=== PATIENT | male | born 1985 | race Caucasian/White ===

== ENCOUNTER 2017-04-05 21:15 | Emergency (ER) | payer MEDICARE ==
--- NOTE | 2017-04-05 21:28 | Emergency Department Record ---
History of Present Illness - General Chief complaint: Dental Stated complaint: DENTAL PAIN Time Seen by Provider: 04/05/17 21:28 Source: Patient - History of Present Illness Initial comments: The patient states that he has bad teeth throughout his mouth and has had his molars pulled from the [facility]. They won't see him anymore because he is currently a resident of [facility]. He states his lower left front teeth are hurting him continuously for months, but have increased in level of pain the past 1-2 weeks. He denies f,c, swelling, but he states ibuprofen is not controlling the pain. MD complaint: Tooth pain - Related Data Previous Rx's Medication Instructions Recorded Penicillin V Potassium 500 mg PO Q6H #39 tab 04/05/17 Tramadol HCl [Ultram] 50 mg PO Q8H #20 tab 04/05/17 Allergies Allergy/AdvReac Type Severity Reaction Status Date / Time No Known Drug Allergies Allergy Verified 04/05/17 21:28 Review of Systems Reviewed: No additional complaints except as noted below Constitutional: Reports: As per HPI. Denies: Chills, Fever, Malaise, Night sweats, Weakness, Weight change Eyes: Reports: As per HPI. Denies: Eye discharge, Eye pain, Photophobia, Vision change ENT: Reports: As per HPI. Denies: Congestion, Dental pain, Ear pain, Epistaxis , Hearing loss, Throat pain Respiratory: Reports: As per HPI. Denies: Cough, Dyspnea, Hemoptysis, Stridor, Wheezes Cardiovascular: Reports: As per HPI. Denies: Arrhythmia, Chest pain, Dyspnea on exertion, Edema, Murmurs, Orthopnea, Palpitations, Paroxysmal nocturnal dyspnea, Rheumatic Fever, Syncope Endocrine: Reports: As per HPI. Denies: Fatigue, Heat or cold intolerance, Polydipsia, Polyuria Gastrointestinal: Reports: As per HPI. Denies: Abdominal pain, Constipation, Diarrhea, Hematemesis, Hematochezia, Melena, Nausea, Vomiting Genitourinary: Reports: As per HPI. Denies: Dysuria, Frequency, Hematuria, Incontinence, Retention, Testicular pain, Testicular mass, Urgency Musculoskeletal: Reports: As per HPI. Denies: Arthralgia, Back pain, Gout, Joint swelling, Myalgia, Neck pain Skin: Reports: As per HPI. Denies: Bruising, Change in color, Change in hair/ nails, Lesions, Pruritus, Rash Neurological: Reports: As per HPI. Denies: Abnormal gait, Confusion, Headache, Numbness, Paresthesias, Seizure, Tingling, Tremors, Vertigo, Weakness Psychiatric: Reports: As per HPI. Denies: Anxiety, Auditory hallucinations, Depression, Homicidal thoughts, Suicidal thoughts, Visual hallucinations Hematological/Lymphatic: Reports: As per HPI. Denies: Anemia, Blood Clots, Easy bleeding, Easy bruising, Swollen glands Past Medical History - SOCIAL HISTORY Smoking Status: Current every day smoker Physical Exam - General General Appearance: Alert, Oriented x3, Cooperative, Mild distress - Head Head exam: Normal inspection Head exam detail: Other (no facial swelling visible) - Eye Eye exam: Normal appearance, PERRL, EOMI Pupils: Normal accommodation - ENT ENT exam: Normal exam, Mucous membranes moist, Normal external ear exam, Normal orophraynx, TM's normal bilaterally Ear exam: Normal external inspection. negative: External canal tenderness Nasal Exam: Normal inspection. negative: Discharge, Sinus tenderness Mouth exam: Normal external inspection, Tongue normal Teeth exam: Dental caries (molars absent, remaining teeth with advanced caries, no obvious abscess.) Throat exam: Normal inspection. negative: Tonsillar erythema, Tonsillar exudate - Neck Neck exam: Normal inspection, Full ROM. negative: Lymphadenopathy, Meningismus , Tenderness - Respiratory Respiratory exam: Normal lung sounds bilaterally. negative: Respiratory distress - Cardiovascular Cardiovascular Exam: Regular rate, Normal rhythm, Normal heart sounds - GI/Abdominal GI/Abdominal exam: Soft, Normal bowel sounds. negative: Tenderness - Rectal Rectal exam: Deferred - exam: Deferred - Extremities Extremities exam: Normal inspection, Full ROM, Normal capillary refill. negative: Tenderness - Back Back exam: Reports: Normal inspection, Full ROM. Denies: Muscle spasm, Rash noted, Tenderness - Neurological Neurological exam: Alert, Normal gait, Oriented X3, Reflexes normal - Psychiatric Psychiatric exam: Normal affect, Normal mood - Skin Skin exam: Dry, Intact, Normal color, Warm Medical Decision Making - Management Options MDM Management: Additional Work-up Planned (e.g. ADM/Transfer/OP Study) (dental referral) Disposition Disposition: Discharge Clinical Impression: Dental caries Disposition: Home, Self-Care Instructions: Dental Abscess (ED), Toothache (ED), Gingivostomatitis in Children (ED) Additional Instructions: Pen as directed until gone. Ultram as directed as needed for severe pain. tylenol alternated with ibuprofen as directed as needed for pain. Dental referral numbers as given for follow up--call Saturday for appointment. Prescriptions: Penicillin V Potassium 500 mg PO Q6H #39 tab Tramadol HCl [Ultram] 50 mg PO Q8H #20 tab Forms: Patient Portal Access
[2017-04-05] MEDS ORDERED: PENICILLIN V POTASSIUM 250 MG TAB PO ONE (22:07)
[2017-04-05] MEDS ORDERED: TRAMADOL HCL 50 MG TABLET PO ONE (22:08)
== END 2017-04-05 22:25 | disposition home or self-care (01) ==
LOC: ER 21:15
DX: K02.9 Dental caries, unspecified (principal)
CPT/HCPCS: 99282

== ENCOUNTER 2018-08-25 21:34 | Emergency (ER) | payer MEDICARE ==
--- NOTE | 2018-08-25 22:06 | Emergency Department Record ---
History of Present Illness - General Chief complaint: Dental Stated complaint: DENTAL ABSCESS Time Seen by Provider: 08/25/18 22:05 Source: Patient Mode of Arrival: Ambulatory Limitations: No limitations - History of Present Illness Initial comments: 33 yo male presents to ED for evaluation of worsening dental abscess/infection to the left lo9wer jaw for approximately 1 week. Patient reports that he has been taking Penicillin VK daily for the past 1 week, but does not seem be helping (only taking 500 mg daily). Patient reports that the gingiva feels swollen. Patient denies dental pain symptoms. Patient denies fevers, chills, jaw swelling, or difficulty in breathing symptoms. Patient denies health problems other than dental caries. MD complaint: Tooth pain Onset/Timin -: Week(s) Location: Tooth # Severity: Mild Consistency: Constant Improves with: None Worsens with: None Context-Epistaxis: History of similar Context- Dental: History of dental caries Associated Symptoms: Gum swelling - Related Data Home Medications Medication Instructions Recorded Confirmed Last Taken Penicillin V Potassium 500 mg PO BID 08/25/18 08/25/18 Unknown Previous Rx's Medication Instructions Recorded Penicillin V Potassium 500 mg PO QID #40 tablet 08/25/18 Allergies Allergy/AdvReac Type Severity Reaction Status Date / Time No Known Drug Allergies Allergy Verified 04/05/17 21:28 Travel Screening - Travel/Exposure Within Last 30 Days Have you traveled within the last 30 days?: No Review of Systems Constitutional: Denies: Chills, Fever, Malaise, Night sweats Eyes: Denies: Eye discharge, Eye pain ENT: Reports: Dental pain. Denies: Congestion, Ear pain, Epistaxis Respiratory: Denies: Cough, Dyspnea Cardiovascular: Denies: Chest pain, Dyspnea on exertion Endocrine: Denies: Fatigue, Heat or cold intolerance Gastrointestinal: Denies: Abdominal pain, Nausea, Vomiting Genitourinary: Denies: Incontinence, Retention Musculoskeletal: Denies: Arthralgia, Back pain Skin: Denies: Bruising, Change in color Neurological: Denies: Abnormal gait, Confusion, Headache, Seizure Psychiatric: Denies: Anxiety Hematological/Lymphatic: Denies: Anemia, Blood Clots Past Medical History - SOCIAL HISTORY Smoking Status: Current every day smoker Alcohol Use: None Drug Use: None - RESPIRATORY Hx Respiratory Disorders: Yes 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 - CARDIOVASCULAR Hx Cardio Disorders: No - NEURO Hx Neuro Disorders: No - GI Hx GI Disorders: No - Hx Genitourinary Disorders: No - ENDOCRINE Hx Endocrine Disorders: No - MUSCULOSKELETAL Hx Musculoskeletal Disorders: No - PSYCH Hx Psych Problems: No - HEMATOLOGY/ONCOLOGY Hx Hematology/Oncology Disorders: Yes Comment:: Genetic disease- Charotmarietooth type 2C Family Medical History Any Significant Family History?: Yes Family Hx Comment (NOT TO BE USED IN PLACE OF ITEMS BELOW): Genetic disorder Hx Diabetes: Father Hx HTN: Father *Resp Comment: restrictive airway w/vocal cord paralysis Physical Exam - General General Appearance: Alert, Oriented x3, Cooperative, Mild distress Limitations: No limitations - Head Head exam: Atraumatic, Normocephalic, Normal inspection Head exam detail: negative: Abrasion, Contusion, Gomez's sign, General tenderness, Hematoma, Laceration - Eye Eye exam: Normal appearance. negative: Conjunctival injection, Periorbital swelling, Periorbital tenderness, Scleral icterus - ENT Ear exam: negative: Auricular hematoma, Auricular trauma Mouth exam: negative: Drooling, Laceration, Muffled voice, Tongue elevation, Tongue normal Teeth exam: Dental caries, Other (No gingival abscess is present on examination. ). negative: Dental tenderness #, Fractured tooth #, Gingival enlargement Throat exam: negative: Tonsillar erythema, Tonsillomegaly, R peritonsillar mass , L peritonsillar mass - Neck Neck exam: Normal inspection. negative: Meningismus, Tenderness - Respiratory Respiratory exam: Normal lung sounds bilaterally. negative: Rales, Respiratory distress, Rhonchi, Stridor - Cardiovascular Cardiovascular Exam: Regular rate, Normal rhythm, Normal heart sounds - GI/Abdominal GI/Abdominal exam: Soft. negative: Rebound, Rigid, Tenderness - Rectal Rectal exam: Deferred - exam: Deferred - Extremities Extremities exam: Normal inspection. negative: Calf tenderness, Pedal edema, Tenderness - Back Back exam: Denies: CVA tenderness (R), CVA tenderness (L) - Neurological Neurological exam: Alert, Normal gait, Oriented X3 - Psychiatric Psychiatric exam: Normal affect, Normal mood - Skin Skin exam: Normal color. negative: Abrasion Type of lesion: negative: abrasion Course Vital Signs 08/25/18 21:46 Temperature 98.6 F Pulse Rate [ 96 H Pulse Ox Probe] Respiratory 24 Rate Blood Pressure 141/83 [Left Arm] Pulse Ox 98 - Reevaluation(s) Reevaluation #1: 08/25/18 22:11 Symptoms appear c/w dental caries Will prescribe Pen VK as directed 4 times daily for 10 days with instructions for dental follow-up. Patient agrees with the plan of care as discussed. Disposition Disposition: Discharge Clinical Impression: Dental caries Disposition: Home, Self-Care Condition: (2) Stable Instructions: Dental Abscess (ED) Additional Instructions: Return to ED if your symptoms worsen or if you have any concerns. Penicillin VK as directed. Follow-up with your dentist in 3-5 days as directed. Prescriptions: Penicillin V Potassium 500 mg PO QID #40 tablet Forms: Patient Portal Access Time of Disposition: 22:06 Quality - Quality Measures Quality Measures: N/A - Blood Pressure Screening Does Patient Have Any of the Following: No Blood Pressure Classification: Pre-Hypertensive BP Reading Systolic Measurement: 141 Diastolic Measurement: 83 Screening for High Blood Pressure: < Pre-Hypertensive BP, F/U Documented > [ G8950] Pre-Hypertensive Follow-up Interventions: Referral to alternative/primary care provider.
== END 2018-08-25 22:35 | disposition home or self-care (01) ==
LOC: ER 21:34
DX: K02.9 Dental caries, unspecified (principal); F17.210 Nicotine dependence, cigarettes, uncomplicated
CPT/HCPCS: 99282

== ENCOUNTER 2019-07-17 14:35 | Emergency (ER) | payer MEDICARE ==
[2019-07-17] MEDS ORDERED: KETOROLAC 30 MG/ML VIAL IM ONE (14:43)
--- NOTE | 2019-07-17 14:45 | Emergency Department Record ---
History of Present Illness - General Chief complaint: ENT Stated complaint: DENTAL PAIN Time Seen by Provider: 07/17/19 14:36 Source: Patient Mode of Arrival: Ambulatory Limitations: No limitations - History of Present Illness Initial comments: The patient is here due to L jaw pain for the last 1 hour since he had 3 teeth pulled 4 hours ago. He was at [facility] this AM and had the L lower teeth pulled and now the anesthesia is wearing off and his Ibuprofen is not helping. He also has been taking Keflex. The patient denies any trouble or pain with swallowing or any SOB. The patient does have a hx of chronic stridor and vocal cord dysfunction but that is stable at this time. He denies any voice changes or breathing issues. MD complaint: Tooth pain Onset/Timin -: Hour(s) Location: Tooth # Severity: Moderate Severity scale (1-10): 9 Quality: Aching Consistency: Constant Improves with: None Worsens with: None Associated Symptoms: Other - Related Data Home Medications Medication Instructions Recorded Confirmed Last Taken Ibuprofen 800 mg PO Q6H 07/17/19 07/17/19 Unknown Previous Rx's Medication Instructions Recorded Naproxen [Naprosyn] 500 mg PO BID #14 tablet. 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 - CARDIOVASCULAR Hx Cardio Disorders: No - NEURO Hx Neuro Disorders: No - GI Hx GI Disorders: No - Hx Genitourinary Disorders: No - ENDOCRINE Hx Endocrine Disorders: No - MUSCULOSKELETAL Hx Musculoskeletal Disorders: No - PSYCH Hx Psych Problems: No - HEMATOLOGY/ONCOLOGY Hx Hematology/Oncology Disorders: Yes Comment:: Genetic disease- Charotmarietooth type 2C Family Medical History Any Significant Family History?: Yes Family Hx Comment (NOT TO BE USED IN PLACE OF ITEMS BELOW): Genetic disorder Hx Diabetes: Father Hx HTN: Father *Resp Comment: restrictive airway w/vocal cord paralysis Physical Exam - General General Appearance: Alert, Oriented x3, Cooperative, Mild distress (due to dental pain.) - Head Head exam: Atraumatic, Normocephalic - Eye Eye exam: Normal appearance, PERRL - ENT Teeth exam: Dental caries (diffuse. The extraction sites over the L lower mandible appear very clean, not bleeding and with no swelling.). negative: Normal inspection, Gingival enlargement Throat exam: Normal inspection. negative: Tonsillar erythema, Tonsillar exudate - Neck Neck exam: Normal inspection, Full ROM. negative: Lymphadenopathy, Tenderness - Respiratory Respiratory exam: Normal lung sounds bilaterally. negative: Respiratory distress - Cardiovascular Cardiovascular Exam: Regular rate, Normal rhythm, Normal heart sounds - Extremities Extremities exam: Normal inspection, Full ROM, Normal capillary refill. negative: Tenderness - Neurological Neurological exam: Alert, Normal gait. negative: Abnormal gait, Motor sensory deficit Course Vital Signs 07/17/19 14:44 Temperature 98.9 F Pulse Rate [ 74 Pulse Ox Probe] Respiratory 20 Rate Blood Pressure 145/104 [Left Arm] Pulse Ox 98 - Reevaluation(s) Reevaluation #1: The patient did speak with his dentist while he was in the room and the dentist declined to give him any pain medicines. The patient is willing to have an apical block performed so we will go ahead with that. 07/17/19 15:30 Reevaluation #2: The patient did receive an apical block over the L lower molars with 1.5 cc's of a 50:50 mixture of Lido 1% and Sensoricaine .25%. The pain was much improved after and the patient was ready for home. 07/17/19 15:39 Disposition Disposition: Discharge Clinical Impression: Pain, dental Disposition: Home, Self-Care Condition: (2) Stable Instructions: Toothache (ED) Additional Instructions: Please stop the Ibuprofen and start the Naprosyn. Please see your Dentist SERENA. Return to the ER for any worsening issues. Prescriptions: Naproxen [Naprosyn] 500 mg PO BID #14 tablet.dr Forms: Patient Portal Access Time of Disposition: 15:38 Quality - Quality Measures Quality Measures: N/A - Blood Pressure Screening View Details: Yes Does Patient Have Any of the Following: No Blood Pressure Classification: Hypertensive Reading Systolic Measurement: 145 Diastolic Measurement: 104 Screening for High Blood Pressure: < First Hypertensive BP, F/U Documented > [G8950] First Hypertensive Follow-up Interventions: Referral to alternative/primary care provider.
== END 2019-07-17 15:48 | disposition home or self-care (01) ==
LOC: ER 14:35
DX: K08.89 Other specified disorders of teeth and supporting structures (principal); K08.409 Partial loss of teeth, unspecified cause, unspecified class; F17.210 Nicotine dependence, cigarettes, uncomplicated
CPT/HCPCS: 64400 ×2; 99283 ×2; 96372; J1885